=== PATIENT | male | born 1955 | race Caucasian/White ===

== ENCOUNTER 2023-09-27 12:29 | Emergency (ER) | payer MEDICARE ==
[~2023-09-27] VITALS: Ht 182.9 cm; Wt 111.8 kg
[2023-09-27 14:32] VITALS: BP 161/77; TEMP 97.6; O2SAT 98
[2023-09-27 15:21] LABS: BASO # 0.1 10^3/uL (0.0-0.2); BASO % 1.4 % (0.0-1.0); EOS # 0.3 10^3/uL (0.0-0.5); EOS % 4.8 % (0.0-3.0); HEMATOCRIT 44.1 % (42.0-52.0); HEMOGLOBIN 13.8 g/dl (13.5-17.5); LYMPH # 0.8 10^3/uL (1.5-5.0); LYMPH % 13.7 % (24.0-44.0); MEAN CORPUSCULAR HEMOGLOBIN 24.1 pg (27.0-33.0); MEAN CORPUSCULAR HGB CONC 31.3 g/dl (32.0-36.5); MONO # 0.8 10^3/uL (0.0-0.8); NEUTROPHILS # 3.9 10^3/uL (1.5-8.5); NEUTROPHILS % 66.9 % (36.0-66.0); PLATELET COUNT, AUTOMATED 337 10^3/uL (150-450); RED BLOOD COUNT 5.73 10^6/uL (4.30-6.10); WHITE BLOOD COUNT 5.8 10^3/uL (4.0-10.0)
[2023-09-27 15:32] LABS: ALBUMIN 3.8 G/DL (3.2-5.2); ALKALINE PHOSPHATASE 122 U/L (46-116); ALT/SGPT 9 U/L (7.0-40); AST/SGOT 9 U/L (<34); BILIRUBIN,DIRECT 0.1 MG/DL (<0.4); BILIRUBIN,TOTAL 0.4 MG/DL (0.3-1.2); BLOOD UREA NITROGEN 12 MG/DL (9-23); CALCIUM LEVEL 9.5 MG/DL (8.3-10.6); CARBON DIOXIDE LEVEL 30 MMOL/L (20-31); CHLORIDE LEVEL 102 MMOL/L (98-107); CREATININE FOR GFR 0.97 MG/DL (0.70-1.30); GLOMERULAR FILTRATION RATE > 60.0 (>49); GLUCOSE, FASTING 82 MG/DL (74-106); POTASSIUM SERUM 4.4 MMOL/L (3.5-5.1); SODIUM LEVEL 138 MMOL/L (136-145); TOTAL PROTEIN 7.9 G/DL (5.7-8.2)
[2023-09-27 15:53] LABS: ERYTHROCYTE SEDIMENTATION RATE 124 mm/hr (0-20)
[2023-09-27 17:37] LABS: APPEARANCE, URINE CLEAR (CLEAR); BACTERIA, URINE AUTO NEGATIVE (NEGATIVE); BILIRUBIN, URINE AUTO NEGATIVE (NEGATIVE); BLOOD, URINE BLOOD NEGATIVE (NEGATIVE); COLOR, URINE YELLOW (YELLOW); GLUCOSE, URINE (UA) AUTO NEGATIVE (NEGATIVE); KETONE, URINE AUTO NEGATIVE (NEGATIVE); LEUKOCYTE ESTERASE, URINE AUTO NEGATIVE (NEGATIVE); NITRITE, URINE AUTO NEGATIVE (NEGATIVE); PROTEIN, URINE AUTO NEGATIVE (NEGATIVE); RBC, URINE AUTO 1 /HPF (0-3); SPECIFIC GRAVITY URINE AUTO 1.008 (1.002-1.035); SQUAMOUS EPITHELIAL CELL UR AU 0 /HPF (0-6); UROBILINOGEN, URINE AUTO 0.2 mg/dL (0.0-2.0); WBC, URINE AUTO 1 /HPF (0-3)
== END 2023-09-27 18:09 | disposition home or self-care (01) ==
LOC: M ED 12:29
DX: C25.9 Malignant neoplasm of pancreas, unspecified (principal); R60.0 Localized edema; F17.210 Nicotine dependence, cigarettes, uncomplicated

== ENCOUNTER → 2023-10-03 | Outpatient (CLI) | payer MEDICARE | LOC: M RAD 16:20 | PROVIDERS: ATTEND Physician Assistant | DX: R60.0 Localized edema (principal) ==

== ENCOUNTER → 2023-10-31 | Outpatient (CLI) | payer MEDICARE ==
[~2023-10-31] MED LIST: FURO20TA2 PO; LIDOCAINE 1% MDV 20ML VIAL As Ordered ONE
[2023-10-31 14:20] VITALS: TEMP 98.7
[2023-10-31 14:55] VITALS: BP 164/72; O2SAT 94
== END ==
LOC: M IRPRO 14:01
PROVIDERS: ATTEND Internal Medicine Medical Oncology
DX: R59.0 Localized enlarged lymph nodes (principal); C61 Malignant neoplasm of prostate

== ENCOUNTER → 2023-11-10 | Outpatient (REF) | payer MEDICARE ==
[~2023-11-10] MED LIST changes: -LIDOCAINE 1% MDV 20ML VIAL As Ordered ONE
== END ==
LOC: M SMT PRO 12:41
PROVIDERS: ATTEND Urology
DX: C61 Malignant neoplasm of prostate (principal)

== ENCOUNTER → 2023-11-13 | Outpatient (CLI) | payer MEDICARE ==
[~2023-11-13] MED LIST changes: +LIDOCAINE 1% MDV 20ML VIAL As Ordered ONE
[2023-11-13 13:55] VITALS: TEMP 98.3
[2023-11-13 15:35] VITALS: BP 184/84; O2SAT 97
== END ==
LOC: M IRPRO 13:40
PROVIDERS: ATTEND Internal Medicine Medical Oncology
DX: D48.0 Neoplasm of uncertain behavior of bone and articular cartilage (principal)

== ENCOUNTER → 2023-12-22 | Outpatient (CLI) | payer MEDICARE ==
[~2023-12-22] VITALS: Ht 180.3 cm; Wt 104.7 kg
[~2023-12-22] MED LIST changes: +ABIR500T PO; +BICA50TA4 PO; +CIPR500T39; +DEXA2TA PO; +GABA-282 PO; +LEVO1TAB40 PO; -LIDOCAINE 1% MDV 20ML VIAL As Ordered ONE; +OMEP-173 PO; +POTA10CA70 PO; +PRED5TA PO; +PYRI0.4T PO; +SENN-186 PO; +TAMS1CAP17 PO; +TRAM50TA2 PO
[2023-12-22 14:28] VITALS: BP 155/80; O2SAT 98
== END ==
LOC: M PAL 14:07
PROVIDERS: ATTEND Nurse Practitioner Adult Health
DX: C61 Malignant neoplasm of prostate (principal); C79.51 Secondary malignant neoplasm of bone; I89.0 Lymphedema, not elsewhere classified; R30.0 Dysuria; K59.00 Constipation, unspecified; G89.3 Neoplasm related pain (acute) (chronic); M79.661 Pain in right lower leg; Z51.5 Encounter for palliative care; Z79.899 Other long term (current) drug therapy; F17.210 Nicotine dependence, cigarettes, uncomplicated

== ENCOUNTER → 2023-12-27 | Outpatient (RCR) | payer MEDICARE ==
[~2023-12-27] MED LIST changes: -ABIR500T PO; -CIPR500T39; -LEVO1TAB40 PO; -OMEP-173 PO; -PRED5TA PO; -PYRI0.4T PO; -TRAM50TA2 PO
== END ==
LOC: M ONCR 12-22 15:56
PROVIDERS: ATTEND General Practice
DX: Z51.0 Encounter for antineoplastic radiation therapy (principal); C61 Malignant neoplasm of prostate

== ENCOUNTER 2023-12-29 14:44 | Outpatient (RCR) | payer MEDICARE ==
[2024-01-18] MEDS ORDERED: PYRI0.4T PO (08:51)
[2024-01-18] MEDS ORDERED: OMEP-173 PO (08:53)
[2024-01-18] MEDS ORDERED: TRAM50TA2 PO (08:54)
[2024-02-05] MEDS ORDERED: CIPR500T39 (14:20)
[2024-02-05] MEDS ORDERED: PRED5TA PO (15:00)
[2024-02-05] MEDS ORDERED: ABIR500T PO (15:00)
[2024-02-08] MEDS ORDERED: LEVO1TAB40 PO (14:33)
[2024-02-08] MEDS ORDERED: PYRI0.4T PO (14:43)
== END 2024-01-27 ==
LOC: M ONCR 14:44
PROVIDERS: ATTEND General Practice
DX: Z51.0 Encounter for antineoplastic radiation therapy (principal); C61 Malignant neoplasm of prostate; C79.51 Secondary malignant neoplasm of bone

== ENCOUNTER 2024-01-24 14:46 | Outpatient (RCR) | payer MEDICARE ==
[~2024-01-24 14:46] MED LIST changes: +OMEP-173 PO; +PYRI0.4T PO; +TRAM50TA2 PO
[2024-02-05] MEDS ORDERED: CIPR500T39 (14:20)
[2024-02-05] MEDS ORDERED: PRED5TA PO (15:00)
[2024-02-05] MEDS ORDERED: ABIR500T PO (15:00)
[2024-02-08] MEDS ORDERED: LEVO1TAB40 PO (14:33)
[2024-02-08] MEDS ORDERED: PYRI0.4T PO (14:43)
== END 2024-01-27 ==
LOC: M PT 14:46
PROVIDERS: ATTEND Physician Assistant
DX: I89.0 Lymphedema, not elsewhere classified (principal)

== ENCOUNTER → 2024-02-08 | Outpatient (CLI) | payer MEDICARE ==
[~2024-02-08] VITALS: Ht 182.9 cm; Wt 106.6 kg
[~2024-02-08] MED LIST changes: +ABIR500T PO; +CIPR500T39; +CIPR500T39 PO; +GABA-1172 PO; -GABA-282 PO; +LEVO1TAB40 PO; +PRED5TA PO
[2024-02-08 13:57] VITALS: BP 141/76; O2SAT 96
[2024-02-08 16:42] LABS: BILIRUBIN, URINE MANUAL OBSCURED (NEGATIVE); GLUCOSE, URINE (UA) MANUAL NEGATIVE (NEGATIVE); KETONE, URINE MANUAL NEGATIVE (NEGATIVE); PROTEIN, URINE MANUAL OBSCURED mg/dL (NEGATIVE); SPECIFIC GRAVITY,URINE MANUAL 1.025 (1.002-1.035); UROBILINOGEN, URINE MANUAL OBSCURED mg/dl (NORMAL)
[2024-02-08 16:43] LABS: LEUKOCYTE ESTERASE, URINE MAN OBSCURED (NEGATIVE); NITRITE, URINE MANUAL OBSCURED (NEGATIVE)
[2024-02-08 16:57] LABS: BLOOD URINE MANUAL OBSCURED (NEGATIVE)
[2024-02-08 16:58] LABS: APPEARANCE, URINE MANUAL CLEAR (CLEAR); BACTERIA, URINE SMALL AMOUNT; COLOR, URINE MANUAL ORANGE (YELLOW); RBC, URINE NONE SEEN /hpf (0-3); SQUAMOUS EPITHELIAL CELL URINE SMALL AMOUNT /hpf (SMALL AMT)
[2024-02-08 17:00] LABS: HYALINE CAST, URINE NONE SEEN /lpf (0-1); SPERM, URINE SMALL AMOUNT
== END ==
LOC: M PAL 13:29
PROVIDERS: ATTEND Nurse Practitioner Adult Health
DX: G89.3 Neoplasm related pain (acute) (chronic) (principal); C61 Malignant neoplasm of prostate; C79.51 Secondary malignant neoplasm of bone; I89.0 Lymphedema, not elsewhere classified; R30.0 Dysuria; R35.0 Frequency of micturition; K59.00 Constipation, unspecified; Z51.5 Encounter for palliative care; Z79.52 Long term (current) use of systemic steroids; Z79.899 Other long term (current) drug therapy; F17.210 Nicotine dependence, cigarettes, uncomplicated
CPT/HCPCS: 81000; 87086; G0463

== ENCOUNTER → 2024-02-22 | Outpatient (CLI) | payer MEDICARE | LOC: M PAL 11:00 | PROVIDERS: ATTEND Nurse Practitioner Family | DX: G89.3 Neoplasm related pain (acute) (chronic) (principal); C61 Malignant neoplasm of prostate; C79.51 Secondary malignant neoplasm of bone; Z51.5 Encounter for palliative care; Z79.891 Long term (current) use of opiate analgesic; Z79.1 Long term (current) use of non-steroidal anti-inflammatories (NSAID); Z79.899 Other long term (current) drug therapy; Z79.52 Long term (current) use of systemic steroids; Z92.3 Personal history of irradiation ==

== ENCOUNTER → 2024-02-26 | Outpatient (RCR) | payer MEDICARE ==
[~2024-02-26] MED LIST changes: -GABA-1172 PO; +GABA-282 PO
== END ==
LOC: M PT 02-01 14:23
PROVIDERS: ATTEND Physician Assistant
DX: I89.0 Lymphedema, not elsewhere classified (principal)

== ENCOUNTER → 2024-03-14 | Outpatient (CLI) | payer MEDICARE ==
[~2024-03-14] VITALS: Ht 180.3 cm; Wt 106.7 kg
[~2024-03-14] MED LIST changes: +GABA-1172 PO; -GABA-282 PO
[2024-03-14 10:35] VITALS: BP 151/79; O2SAT 96
== END ==
LOC: M PAL 10:27
PROVIDERS: ATTEND Nurse Practitioner Adult Health
DX: G89.3 Neoplasm related pain (acute) (chronic) (principal); C61 Malignant neoplasm of prostate; C79.51 Secondary malignant neoplasm of bone; K59.00 Constipation, unspecified; I89.0 Lymphedema, not elsewhere classified; Z51.5 Encounter for palliative care; Z79.52 Long term (current) use of systemic steroids; Z79.891 Long term (current) use of opiate analgesic; Z79.818 Long term (current) use of other agents affecting estrogen receptors and estrogen levels; Z79.899 Other long term (current) drug therapy; Z92.3 Personal history of irradiation

== ENCOUNTER 2024-03-25 14:48 | Outpatient (RCR) | payer MEDICARE ==
[2024-03-29] MEDS ORDERED: VENL75CA47 PO (11:17)
[2024-04-01] MEDS ORDERED: ABIR500T PO (09:46)
[2024-04-01] MEDS ORDERED: PRED5TA PO (09:46)
== END 2024-03-28 ==
LOC: M PT 14:48
PROVIDERS: ATTEND Physician Assistant
DX: I89.0 Lymphedema, not elsewhere classified (principal)

== ENCOUNTER → 2024-03-28 | Outpatient (CLI) | payer MEDICARE ==
[~2024-03-28] MED LIST changes: +ISOVUE-370 76% 100ML VIAL As Ordered ONE; +VENL75CA47 PO
== END ==
LOC: M RAD 09:24
PROVIDERS: ATTEND Internal Medicine Medical Oncology
DX: C61 Malignant neoplasm of prostate (principal)
CPT/HCPCS: 71260; 74177; Q9967

== ENCOUNTER → 2024-03-29 | Outpatient (CLI) | payer MEDICARE ==
[~2024-03-29] MED LIST changes: -ISOVUE-370 76% 100ML VIAL As Ordered ONE
== END ==
LOC: M ONCR 10:21
PROVIDERS: ATTEND General Practice
DX: C61 Malignant neoplasm of prostate (principal); C79.51 Secondary malignant neoplasm of bone; I89.0 Lymphedema, not elsewhere classified; R35.1 Nocturia; R23.2 Flushing; F17.210 Nicotine dependence, cigarettes, uncomplicated; Z79.52 Long term (current) use of systemic steroids; Z79.818 Long term (current) use of other agents affecting estrogen receptors and estrogen levels; Z79.899 Other long term (current) drug therapy; Z92.3 Personal history of irradiation

== ENCOUNTER → 2024-04-24 | Outpatient (CLI) | payer MEDICARE ==
[~2024-04-24] VITALS: Ht 182.9 cm; Wt 106.4 kg
[~2024-04-24] MED LIST changes: +NAPR220C14 PO
[2024-04-24 10:45] VITALS: BP 183/84; O2SAT 98
== END ==
LOC: M PAL 10:00
PROVIDERS: ATTEND Nurse Practitioner Adult Health
DX: G89.3 Neoplasm related pain (acute) (chronic) (principal); C61 Malignant neoplasm of prostate; C79.51 Secondary malignant neoplasm of bone; R59.0 Localized enlarged lymph nodes; Z51.5 Encounter for palliative care; Z79.1 Long term (current) use of non-steroidal anti-inflammatories (NSAID); Z79.52 Long term (current) use of systemic steroids; Z79.891 Long term (current) use of opiate analgesic; Z79.899 Other long term (current) drug therapy; Z79.818 Long term (current) use of other agents affecting estrogen receptors and estrogen levels; Z92.3 Personal history of irradiation

== ENCOUNTER → 2024-06-26 | Outpatient (CLI) | payer MEDICARE ==
[~2024-06-26] VITALS: Ht 182.9 cm; Wt 109.9 kg
[2024-06-26 13:00] VITALS: BP 198/102; O2SAT 97
== END ==
LOC: M PAL 12:39
PROVIDERS: ATTEND Family Medicine
DX: Z51.5 Encounter for palliative care (principal); C61 Malignant neoplasm of prostate; C79.51 Secondary malignant neoplasm of bone; C78.6 Secondary malignant neoplasm of retroperitoneum and peritoneum; Z92.3 Personal history of irradiation; Z66 Do not resuscitate; R52 Pain, unspecified; K59.00 Constipation, unspecified; Z79.1 Long term (current) use of non-steroidal anti-inflammatories (NSAID); Z79.52 Long term (current) use of systemic steroids; Z79.899 Other long term (current) drug therapy; Z79.818 Long term (current) use of other agents affecting estrogen receptors and estrogen levels

== ENCOUNTER → 2024-08-08 | Outpatient (REF) | payer MEDICARE, MEDICAID ==
[~2024-08-08] MED LIST changes: +MUCI600T31 PO
[2024-08-08 19:01] LABS: ALBUMIN 3.9 G/DL (3.2-5.2); ALKALINE PHOSPHATASE 89 U/L (40-129); ALT/SGPT 18 U/L (7.0-40); AST/SGOT 11 U/L (<34); BILIRUBIN,TOTAL 0.4 MG/DL (0.3-1.2); BLOOD UREA NITROGEN 12 MG/DL (9-23); CALCIUM LEVEL 9.2 MG/DL (8.3-10.6); CARBON DIOXIDE LEVEL 30 MMOL/L (20-31); CHLORIDE LEVEL 104 MMOL/L (98-107); CHOLESTEROL LEVEL 226 MG/DL (<200); CHOLESTEROL RISK RATIO 6.15 (<5); CREATININE FOR GFR 0.79 MG/DL (0.70-1.30); GLOMERULAR FILTRATION RATE > 60.0 (>49); GLUCOSE, FASTING 124 MG/DL (74-106); HDL CHOLESTEROL 36.7 MG/DL (>40); LDL CHOLESTEROL 110.9 MG/DL (<100); NON-HDL-C 189.3 MG/DL; POTASSIUM SERUM 4.3 MMOL/L (3.5-5.1); SODIUM LEVEL 141 MMOL/L (136-145); TOTAL PROTEIN 6.9 G/DL (5.7-8.2); TRIGLYCERIDES LEVEL 392 MG/DL (<150)
[2024-08-08 19:03] LABS: THYROID STIMULATING HORMONE 4.532 uIU/ML (0.55-4.78); TOTAL 25(OH) VITAMIN D 9.7 NG/ML (20.0-100.0)
[2024-08-08 19:28] LABS: HIV 1&2 SCREEN NEGATIVE (NEGATIVE)
[2024-08-08 19:35] LABS: HEMOGLOBIN A1c 5.8 % (4.0-6.0); HEPATITIS C VIRUS ABY INDEX 0.03 INDEX (<0.8)
== END ==
LOC: M LAB REF 18:06
PROVIDERS: ATTEND Physician Assistant
DX: Z11.9 Encounter for screening for infectious and parasitic diseases, unspecified (principal); E66.9 Obesity, unspecified; E55.9 Vitamin D deficiency, unspecified; E07.9 Disorder of thyroid, unspecified

== ENCOUNTER → 2024-08-28 | Outpatient (CLI) | payer MEDICARE ==
[~2024-08-28] VITALS: Ht 182.9 cm; Wt 107.0 kg
[~2024-08-28] MED LIST changes: +ALEV220T22 PO; +ATOR1TAB21 PO; +VITA200016 PO
[2024-08-28 13:47] VITALS: BP 145/78; O2SAT 97
== END ==
LOC: M PAL 13:16
PROVIDERS: ATTEND Physician Assistant
DX: Z51.5 Encounter for palliative care (principal); Z66 Do not resuscitate; C61 Malignant neoplasm of prostate; C79.51 Secondary malignant neoplasm of bone; C78.6 Secondary malignant neoplasm of retroperitoneum and peritoneum; Z92.21 Personal history of antineoplastic chemotherapy; Z92.3 Personal history of irradiation; Z79.890 Hormone replacement therapy; Z79.899 Other long term (current) drug therapy

== ENCOUNTER 2024-09-05 08:58 | Day surgery (SDC) | payer MEDICARE ==
[~2024-09-05] VITALS: Ht 185.4 cm; Wt 104.9 kg
[~2024-09-05 08:58] MED LIST changes: +MIDAZOLAM INJ 2MG/2ML VIAL As Ordered ONE; +PHENYLEPHRINE 10% OPHTH SOL 5ML OS PRN; +fentaNYL 100 MCG/2 ML INJECTION As Ordered ONE
[2024-09-05] MEDS: OFLOXACIN 0.3 % (OCUFLOX) OPTH SOL 5ML OS ONE (10:07)
[2024-09-05] MEDS: CYCLOPENTOLATE 1% OPHTH SOLN 2ML BTL OS SCH (10:07)
[2024-09-05] MEDS: TROPICAMIDE 1% OPHTH SOLN 15ML OS SCH (10:07)
[2024-09-05] MEDS: PHENYLEPHRINE 2.5% OPHTH SOL 2ML OS SCH (10:07)
[2024-09-05] MEDS: LIDOCAINE 3.5 % 1ML OPHTH TOPICAL GEL OU ONE (10:08)
[2024-09-05] MEDS: BSS IRRIG/VANCO(10MG)/TOBRA(5MG)/EPINEPH(1:1000-0.5CC)500ML BAG-ORONLY As Ordered ONE (10:36)
[2024-09-05] MEDS: CEFUROXIME 1MG/0.1ML INTRACAMERAL INJ As Ordered ONE (10:36)
[2024-09-05] MEDS: LIDOCAINE 1% SDV 5ML VIAL As Ordered ONE (10:36)
[2024-09-05 10:47] VITALS: BP 137/66; TEMP 96.2; O2SAT 97
== END 2024-09-05 11:21 | disposition home or self-care (01) ==
LOC: M SDC 08:58
PROVIDERS: ATTEND Ophthalmology
DX: H25.12 Age-related nuclear cataract, left eye (principal); C61 Malignant neoplasm of prostate; C77.5 Secondary and unspecified malignant neoplasm of intrapelvic lymph nodes; C79.51 Secondary malignant neoplasm of bone; Z79.899 Other long term (current) drug therapy; F17.210 Nicotine dependence, cigarettes, uncomplicated; Z92.21 Personal history of antineoplastic chemotherapy; Z90.89 Acquired absence of other organs; Z90.49 Acquired absence of other specified parts of digestive tract
CPT/HCPCS: 66984; J0697; J2250; J3010; V2632

== ENCOUNTER → 2024-09-26 | Outpatient (CLI) | payer MEDICARE, MEDICAID ==
[~2024-09-26] MED LIST changes: -MIDAZOLAM INJ 2MG/2ML VIAL As Ordered ONE; -PHENYLEPHRINE 10% OPHTH SOL 5ML OS PRN; -fentaNYL 100 MCG/2 ML INJECTION As Ordered ONE
== END ==
LOC: M ONCR 10:56
PROVIDERS: ATTEND General Practice
DX: C79.51 Secondary malignant neoplasm of bone (principal); C61 Malignant neoplasm of prostate; F17.210 Nicotine dependence, cigarettes, uncomplicated; Z79.818 Long term (current) use of other agents affecting estrogen receptors and estrogen levels; Z79.52 Long term (current) use of systemic steroids; Z79.899 Other long term (current) drug therapy; Z92.3 Personal history of irradiation